=== PATIENT | male | born 1995 | race Caucasian/White ===

== ENCOUNTER 2021-01-05 11:01 | Emergency (ER) | payer OTHER, SELFPAY ==
--- NOTE | ~2021-01-05 | XR_ITS ---
EXAMINATION: XR foot LT min 3V DATE: 01/05/2021 11:22 INDICATION: Left foot injury. TECHNIQUE: 4 views of left foot were obtained. COMPARISON: None. FINDINGS: There is an oblique fracture of neck of fifth metatarsal. The distal fracture fragment demo nstrates 2 mm plantar displacement. There is mild osteoarthritis of first metatarsophalangeal joint. There is an enthesophyte at plantar aspect of calcaneal tuberosity. IMPRESSION: 1. Oblique fracture of neck of fifth metatarsal. Reviewed, dictated and finalized at location B.
[2021-01-05 11:10] VITALS: BP 128/84; PULSE 85; RESP 16; TEMP 36.6; O2SAT 100
--- NOTE | 2021-01-05 11:21 | ED.LOWEXIN ---
HPI - Extremity Injury (Lower) General Chief Complaint: Extremity Injury, Lower Stated Complaint: left foot injury Time Seen by Provider: 01/05/21 11:21 Source: patient, RN notes reviewed and old records reviewed Mode of arrival: wheelchair Limitations: no limitations History of Present Illness HPI Narrative: 25 year old male who presents to [facility] care with complaints of injury to his left foot last night and accidently kicked a stool by the refrigerator with pain and swelling and bruising to distal lateral aspect of his foot. Patient states that he is unable to bear weight to his foot due to pain. No acute deformity noted to left 5th toe or distal lateral left foot but swelling is present with pain on palpation to area. He has strong pulses to left foot with brisk capillary refill with no tingling or numbness voiced to his foot. MD complaint: foot injury Onset (ago): day(s) (1 occurred last night) Injury: Left: foot (over 5th metatarsal) Type of Injury: blunt Place: home Severity: moderate Severity scale (1-10): 4 Exacerbating factors: weight bearing, movement and palpation Context: direct blow Associated symptoms: snap/pop sensation Treatments prior to arrival: cold therapy, NSAIDS and other (elevation) Related Data Home Medications Medication Instructions Recorded Confirmed No Home Medications 01/05/21 01/05/21 Allergies Allergy/AdvReac Type Severity Reaction Status Date / Time No Known Allergies Allergy Verified 01/05/21 11:17 Review of Systems Review of Systems: Narrative: CONSTITUTIONAL: Denies fever, chills, or sweats. EYES: Denies visual changes, redness, or discharge. ENT: Denies rhinorrhea, congestion, sore throat, or otalgia. CARDIOVASCULAR: Denies chest pain, palpitations, or edema. RESPIRATORY: Denies cough or dyspnea. GASTROINTESTINAL: Denies abdominal pain, nausea, vomiting, or diarrhea. GENITOURINARY: Denies dysuria or hematuria. SKIN: Denies rash or itching. MUSCULOSKELETAL: Denies back pain,positive pain to left lateral foot and 5th toe region, or myalgia. NEUROLOGIC: Denies headache, numbness, or weakness. PSYCHIATRIC: Denies anxiety or depression. All systems reviewed & are unremarkable except as noted in HPI and below PMFSH Past Medical History Medical History (Updated 01/07/21 @ 21:12 by Nikki Nichole NP) Bronchitis History of strep sore throat Hydrocephalus with operating shunt shunt removed Family History Family History (Updated 01/07/21 @ 20:52 by Nikki Nichole NP) Grandparent Osteoporosis Diabetes mellitus Father Hypertension Mother Depression Social History Social History (Updated 01/07/21 @ 20:54 by Nikki Nichole NP) Smoking packs per day: 1 Smoking cigarettes per day: 20.0 Years smoked: 7 Smoking pack-years: 7.00 Smoking status: Former smoker Tobacco type: e-cigarettes/vaping Additional smoking assessment comments: cigarettes for 7 years, vapes for 2 months Alcohol intake: current Alcohol use details: social Substance use: unknown Living arrangements: with friend(s) Gender identity (if verbalized by the patient): Male Comments At time of signature, agree with nursing past medical, surgical, social and family history. There is no relevant family history pertinent to the presenting complaint Exam Narrative: Exam Narrative: GENERAL: Well-appearing, well-nourished, and in no acute distress. HEAD: Normocephalic, atraumatic. EYES: PERRLA and EOMI. ENT: Nares clear, no rhinorrhea or epistaxis. Mucous membranes moist. NECK: Supple.no lymphadenopathy CHEST: Clear to auscultation. No respiratory distress.SAO2 100% on room air. HEART: Regular rate and rhythm. No murmur heard. Normal peripheral pulses. ABDOMEN: Soft, nontender, nondistended, normal active bowel sounds. EXTREMITIES: Normal range of motion. No edema, with exception of swelling and bruising with pain over distal lateral left foot, circulation and sensation intact. S
== END 2021-01-05 12:15 | disposition home or self-care (01) ==
PROVIDERS: Emergency Provider Registered Nurse; PCP Family Medicine
DX: S92.352A Displaced fracture of fifth metatarsal bone, left foot, initial encounter for closed fracture (principal); W22.03XA Walked into furniture, initial encounter; F17.200 Nicotine dependence, unspecified, uncomplicated
CPT/HCPCS: 73630; 99204; G0463